=== PATIENT | female | born 1975 | race Two or more races ===

== ENCOUNTER 2020-09-01 23:11 | Inpatient (IN) | payer OTHER ==
[~2020-09-01] VITALS: Ht 165.1 cm; Wt 100.2 kg
[2020-09-02] MEDS ORDERED: PRENATAL TABLE1 EAC1 PO (00:38)
== END 2020-09-04 14:08 | disposition home or self-care (01) | DRG 807 ==
LOC: OB/GYN 23:11 → LDR 23:11 → OB/GYN 09-02 01:50
PROVIDERS: ADMIT Obstetrics & Gynecology; ATTEND Obstetrics & Gynecology
PROC: 10E0XZZ Delivery of Products of Conception, External Approach (ICD-10-PCS; principal; 2020-09-02)
PROC: 4A1HXFZ Monitoring of Products of Conception, Cardiac Rhythm, External Approach (ICD-10-PCS; 2020-09-02)
PROC: 3E033VJ Introduction of Other Hormone into Peripheral Vein, Percutaneous Approach (ICD-10-PCS; 2020-09-02)
PROC: 0HQ9XZZ Repair Perineum Skin, External Approach (ICD-10-PCS; 2020-09-02)
DX: O70.0 First degree perineal laceration during delivery (principal); Z37.0 Single live birth; Z3A.37 37 weeks gestation of pregnancy